=== PATIENT | female | born 1945 | race Caucasian/White ===

== ENCOUNTER → 2016-12-22 | Outpatient (CLI) | payer MEDICARE ==
--- NOTE | 2016-12-22 15:59 | RAD ---
PQRS Compliance Statement: One or more of the following individualized dose reduction techniques were utilized for this examination: 1. Automated exposure control 2. Adjustment of the mA and/or kV according to patient size 3. Use of iterative reconstruction technique CT of the chest without contrast, 12/22/2016: History: Fibrosis Noncontrast scans were obtained as requested. There is mild calcific plaquing of the thoracic aorta without evidence of aneurysm. Several coronary artery calcifications are also evident. The heart is of normal size. No mediastinal adenopathy is seen. There are moderate linear and reticular parenchymal opacities involving primarily the periphery of both lungs. The appearance is that of fibrosis. There is mild associated traction bronchiectasis in both lung bases. No pulmonary mass is seen. The central bronchi are patent. There is no evidence of pleural fluid. There are mild scattered degenerative changes in the spine. IMPRESSION: 1. Moderate peripheral fibrotic change in both lungs with associated traction bronchiectasis in the lung bases. 2. Calcific plaquing of the aorta and coronary arteries.
== END | disposition home or self-care (01) ==
LOC: CT 10:25
PROVIDERS: ATTEND Internal Medicine Critical Care Medicine
DX: J84.10 Pulmonary fibrosis, unspecified (principal); I25.10 Atherosclerotic heart disease of native coronary artery without angina pectoris; J47.9 Bronchiectasis, uncomplicated
CPT/HCPCS: 71250

== ENCOUNTER → 2018-05-13 | Outpatient (CLI) | payer MEDICARE | END | disposition home or self-care (01) | LOC: CT 09:10 | DX: J84.10 Pulmonary fibrosis, unspecified (principal); I25.10 Atherosclerotic heart disease of native coronary artery without angina pectoris | CPT/HCPCS: 71250 ==

== ENCOUNTER → 2020-08-14 | Outpatient (CLI) | payer MEDICARE ==
--- NOTE | 2020-08-14 11:57 | KCIC ---
EXAM: Dual energy x-ray absorptiometry (DEXA). HISTORY: Osteoporosis, postmenopausal. COMPARISON: None available. TECHNIQUE: Dual energy x-ray absorptiometry of the lumbar spine and left hip was performed. Calculation of bone mineral density based on standard deviations above or below the expected young adult normal value (T-score) was completed. FINDINGS: LUMBAR SPINE: The AVG BMD OF the L2-L4 region = 0.819 gm/cm2, T-score = -2.1, Z-score = 0.3. Findings are consistent with osteopenia. Significant degenerative changes are noted in the lumbar spine. This can artificially elevate the calculation of bone density. Femoral Necks: The BMD of the left femoral neck = 0.576 gm/cm2, T-score = -3.0, Z-score = -1.3. The Findings are consistent with osteoporosis. IMPRESSION: Changes of osteopenia in the spine and osteoporosis in the left hip. Electronically signed by: Jose Stone MD (08/14/2020 11:54 AM) [id number]
== END ==
LOC: KCIC DEXA 07:52
PROVIDERS: ATTEND Family Medicine
DX: M81.8 Other osteoporosis without current pathological fracture (principal); M85.88 Other specified disorders of bone density and structure, other site
CPT/HCPCS: 77080

== ENCOUNTER → 2021-05-30 | Outpatient (CLI) | payer MEDICARE ==
--- NOTE | 2021-05-30 11:33 | RAD ---
PQRS Compliance Statement: One or more of the following individualized dose reduction techniques were utilized for this examinat ion: 1. Automated exposure control 2. Adjustment of the mA and/or kV according to patient size 3. Use of iterative reconstruction technique CT THORAX WO 05/30/2021 10:49 AM Indication: Pulmonary infiltrate COMPARISON: CT chest 05/13/2018, 12/22/2016 TECHNIQUE: Multiple axial CT images of the chest were obtained without intravenous contrast. Coronal and sagittal reformats are provided. FINDINGS: Subpleural reticular interstitial changes are identified with lower lung zone predominance. There is traction bronchiectasis within the lower lobes bilaterally. Faint groundglass subpleural changes are identified. No definite honeycombing is identified. No findings to suggest air trapping. Mild pulmona ry emphysematous changes. Central airways are patent. No significant bronchial wall thickening. Thyro id gland is normal in appearance. No new airspace consolidation is identified. Heart size within norm al limits. No pericardial effusion. Thoracic aorta is normal in course and caliber. Three-vessel hector nary artery vascular calcifications are present. Upper abdomen is stable in appearance. No suspicious osseous normality is identified. Chronic inferior endplate compression deformity secondary to Schmor l's node at C7. Minimal retrolisthesis of T12 on L1. IMPRESSION: Findings are most suggestive of interstitial lung disease with similar changes as compared to 05/13/20 18, although progression from 12/22/2016. Findings favor nonspecific interstitial pneumonia, although early usual interstitial pneumonia could have similar appearance. No new airspace consolidation. Electronically signed by: Catherine Stevens MD (05/30/2021 11:31 AM) [id number]
== END ==
LOC: CT 10:44
PROVIDERS: ATTEND Internal Medicine Critical Care Medicine
DX: J84.112 Idiopathic pulmonary fibrosis (principal); J47.9 Bronchiectasis, uncomplicated; J43.2 Centrilobular emphysema; J84.89 Other specified interstitial pulmonary diseases; I25.10 Atherosclerotic heart disease of native coronary artery without angina pectoris; G95.29 Other cord compression; M43.15 Spondylolisthesis, thoracolumbar region
CPT/HCPCS: 71250